=== PATIENT | male | born 1985 | race Two or more races ===

== ENCOUNTER 2017-12-23 02:46 | Emergency (ER) | payer BC ==
[~2017-12-23] VITALS: Ht 172.7 cm; Wt 63.5 kg
[2017-12-23 02:50] VITALS: BP 136/82
[2017-12-23] MEDS ORDERED: CEPHALEXIN MONOHYDRATE 500 MG CAPSULE PO ONE (04:00)
[2017-12-23] MEDS ORDERED: SULFAMETH/TRIMETH 800/160 MG 1 UDTAB TABLET PO ONE (04:00)
[2017-12-23] MEDS ORDERED: CLINDAMYCIN HCL 150 MG CAPSULE PO ONE ×2 (04:00→04:01)
== END 2017-12-23 04:06 | disposition home or self-care (01) ==
LOC: ER 02:49
DX: K11.20 Sialoadenitis, unspecified (principal); F10.10 Alcohol abuse, uncomplicated; Y90.9 Presence of alcohol in blood, level not specified; Z90.89 Acquired absence of other organs
CPT/HCPCS: 99283; A4606; Z7610